=== PATIENT | female | born 1995 | race Caucasian/White ===

== ENCOUNTER → 2016-12-01 | Outpatient (REF) | payer OTHER ==
[~2016-12-01] MED LIST: ACET50TA PO; IBUP80TA PO; MOM30SS PO
[2016-12-01 19:32] LABS: MEAN CORPUSCULAR HEMOGLOBIN 28.3 pg (27.0-33.0); MEAN CORPUSCULAR HGB CONC 32.3 g/dl (32.0-36.5); MEAN CORPUSCULAR VOLUME 87.6 fl (80.0-96.0); RED CELL DISTRIBUTION WIDTH 12.8 % (11.5-14.5); WHITE BLOOD COUNT 4.4 K/mm3 (4.0-10.0)
[2016-12-01 20:07] LABS: HCG, SERUM QUANTITATIVE 11270 MIU/ML
[2016-12-02 14:21] LABS: CONTROL LINE INT CTR LINE PRESENT; HIV SCRN NEGATIVE (NEGATIVE); HIV SCRN1 NEGATIVE (NEGATIVE)
== END ==
LOC: M LAB REF 16:22
PROVIDERS: ATTEND Advanced Practice Midwife
DX: O36.80X0 Pregnancy with inconclusive fetal viability, not applicable or unspecified (principal)

== ENCOUNTER → 2017-03-07 | Outpatient (CLI) | payer OTHER ==
--- NOTE | 2017-03-07 13:48 | REP ---
Obstetric sonography: History: Supervision of for anatomy. Findings: Scanning through the gravid uterus demonstrates a viable single intrauterine gestation in a breech lie. motion is observed and heart rate is recorded at 144 beats per minute. A posterior grade 0 placenta is seen with evidence of complete placenta previa at this juncture. Closed cervical length is 3.4 cm measured transvaginally. No extrauterine abnormalities observed. No anomaly is seen. spine is less than optimally seen. The following additional anatomic structures are identified and felt to be sonographically unremarkable: cranium, choroid plexus, cavum, cerebellum and posterior fossa, nuchal fold face and profile, lungs, four-chamber heart with left and right ventricular outflow tract views, diaphragm, left-sided stomach, abdominal wall cord insertion, three-vessel umbilical cord, kidneys and bladder, upper and lower extremities. Biometry chart: BPD 4.6 cm = 19 weeks 5 days Head circumference 16.3 cm = 19 weeks 0 days Abdominal circumference 14.8 cm = 20 weeks 0 days Femur length 3.2 cm = 20 weeks 1 day Humeral length 3.2 cm = 20 weeks 5 days HC/AC ratio normal 1.1, cephalic index normal 0.8, estimated weight 324 grams, 0 pounds 11 ounces, 80th percentile for 19 weeks 1 day. Impression: Viable single intrauterine gestation at 19 weeks 6 days by today's composite sonographic criteria. MANISHA by today's sonography July 26, 2017. spine less than optimally seen. anatomic survey is otherwise complete. Placenta previa posteriorly. Signed by Angel Stanley MD 03/07/2017 02:06 P
== END ==
LOC: M RAD 12:46
PROVIDERS: ATTEND Obstetrics & Gynecology
DX: Z34.80 Encounter for supervision of other normal pregnancy, unspecified trimester (principal)

== ENCOUNTER → 2017-05-11 | Outpatient (CLI) | payer OTHER ==
[~2017-05-11] MED LIST changes: +CIPR-249 PO; +LORT5TAB PO; +MOTR200T44 PO; +STUACAP PO; +[UNRECOGNIZED DRUG - OTHER] PO
--- NOTE | 2017-05-11 10:25 | REP ---
OBSTETRIC SONOGRAPHY: HISTORY: Supervision of , followup anatomy. Comparison sonography March 07, 2017 showed less than optimal visualization of spine. FINDINGS: Scanning through the gravid uterus demonstrates a viable single intrauterine gestation in a cephalic lie. The placenta is posterior with persistent evidence of complete placenta previa, grade 1. No evidence of abruption. Amniotic fluid is subjectively normal. Closed cervical length is 3.5 cm. No extrauterine abnormalities observed. There has been appropriate interval growth. The following anatomic structures are identified today and felt to be unremarkable: cranium, cavum, cerebellum and posterior fossa, face and profile, lungs, four-chamber heart with left ventricular outflow tract view, diaphragm, left-sided stomach, abdominal wall cord insertion, three-vessel umbilical cord, kidneys and bladder, and spine. Biometry Chart: BPD 6.7 cm = 27 weeks 0 days HC 25.7 cm = 28 weeks 0 days AC 23.9 cm = 28 weeks 1 day FL 5.8 cm = 30 weeks 1 day HL 5.2 cm = 30 weeks 0 days HC/AC ratio normal 1.08. Cephalic index normal 0.71. Estimated weight 1279 grams, 2 pounds 13 ounces, 50th percentile for 28 weeks 3 days. IMPRESSION: Viable single intrauterine gestation at 28 weeks 5 days by today's composite sonographic criteria. Expected gestational age estimate based on prior sonography is 29 weeks 1 day. MANISHA by prior sonography July 26, 2017. A complete placenta previa is seen. anatomic survey is complete. Signed by Angel Stanley MD 05/11/2017 04:39 P
== END ==
LOC: M RAD 09:04
PROVIDERS: ATTEND Obstetrics & Gynecology
DX: Z34.82 Encounter for supervision of other normal pregnancy, second trimester (principal)

== ENCOUNTER → 2017-05-23 | Outpatient (CLI) | payer OTHER ==
[2017-05-23 15:29] LABS: MEAN CORPUSCULAR HGB CONC 33.4 g/dl (32.0-36.5); MEAN CORPUSCULAR VOLUME 86.7 fl (80.0-96.0); RED CELL DISTRIBUTION WIDTH 13.1 % (11.5-14.5); WHITE BLOOD COUNT 5.5 K/mm3 (4.0-10.0)
== END ==
LOC: M LAB 14:09
PROVIDERS: ATTEND Obstetrics & Gynecology
DX: Z34.82 Encounter for supervision of other normal pregnancy, second trimester (principal)

== ENCOUNTER 2017-06-04 14:06 | Inpatient (IN) | payer OTHER ==
[~2017-06-04] VITALS: Ht 154.9 cm; Wt 65.0 kg
[~2017-06-04 14:06] MED LIST changes: -CIPR-249 PO; -LORT5TAB PO; -MOTR200T44 PO; -STUACAP PO; -[UNRECOGNIZED DRUG - OTHER] PO
[2017-06-04 14:25] VITALS: BP 121/74
[2017-06-04 15:07] VITALS: BP 116/68
--- NOTE | 2017-06-04 15:18 | REP ---
Obstetric ultrasound for cervical length: Cervical length is measured with endovaginal ultrasound technique. The cervix measures 4.4 cm in length. No funneling of the internal loss is identified. By the first ultrasound this gestation the gestational age is 32 weeks 4 days an MANISHA of 07/26/2017. There is a single intrauterine gestation in a vertex presentation. heart rate is 165 beats per minute. There is a complete placenta previa. This has been identified on prior ultrasounds. Signed by Michael Jenkins MD 06/04/2017 03:09 P
[2017-06-04] MEDS ORDERED: LACTATED RINGER'S 1000 ML IV ONE (15:30)
[2017-06-04 15:58] LABS: BASO % 0.4 % (0.0-1.0); EOS % 0.6 % (0.0-3.0); LARGE UNSTAINED CELL # 0.3 K/mm3 (0.0-0.4); LARGE UNSTAINED CELL % 4.7 % (0.0-4.0); LYMPH % 17.1 % (24.0-44.0); MEAN CORPUSCULAR HEMOGLOBIN 28.1 pg (27.0-33.0); MEAN CORPUSCULAR HGB CONC 33.6 g/dl (32.0-36.5); MEAN CORPUSCULAR VOLUME 83.5 fl (80.0-96.0); MONO # 0.2 K/mm3 (0.0-0.8); NEUTROPHILS # 4.3 K/mm3 (1.8-7.7); NEUTROPHILS % 73.2 % (36.0-66.0); PLATELET COUNT, AUTOMATED 224 k/mm3 (150-450); RED CELL DISTRIBUTION WIDTH 13.1 % (11.5-14.5); WHITE BLOOD COUNT 5.9 K/mm3 (4.0-10.0)
[2017-06-04] MEDS: LR 1,000 ML IV SCH (17:05)
[2017-06-04 19:36] VITALS: BP 111/64
[2017-06-04 23:36] VITALS: BP 107/64
[2017-06-04] MEDS ORDERED: ACETAMINOPHEN 500 MG TAB As Ordered ONE (23:42)
[2017-06-05] VITALS (8 sets, daily range): BP systolic 98–128; BP diastolic 56–71
[2017-06-05] MEDS ORDERED: BETAMETHASONE SOLUSPAN 6MG/ML INJ 5ML (J0702) IM SCH (07:30)
[2017-06-05] MEDS: LR 1,000 ML IV SCH ×4 (07:30→23:00)
[2017-06-06] VITALS (7 sets, daily range): BP systolic 106–146; BP diastolic 57–80
[2017-06-06] MEDS ORDERED: TERBUTALINE SULFATE 1 MG/ML VIAL (J3105) As Ordered ONE (05:49)
[2017-06-06] MEDS ORDERED: LR 1,000 ML IV SCH (05:58)
[2017-06-06] MEDS ORDERED: ceFAZolin SOD 1 GM in D5W MINI-BAG PLUS 50 ML IV ONE (06:00)
[2017-06-06] MEDS ORDERED: TERBUTALINE SULFATE 1 MG/ML VIAL (J3105) SC ONE (06:00)
[2017-06-06] MEDS ORDERED: BICITRA 30ML SOLN UDC PO ONE (06:00)
[2017-06-06 06:11] LABS: MEAN CORPUSCULAR HEMOGLOBIN 28.4 pg (27.0-33.0); MEAN CORPUSCULAR HGB CONC 33.6 g/dl (32.0-36.5); MEAN CORPUSCULAR VOLUME 84.6 fl (80.0-96.0); WHITE BLOOD COUNT 7.5 K/mm3 (4.0-10.0)
[2017-06-06] MEDS ORDERED: METOCLOPRAMIDE INJ 10MG/2ML VIAL (J2765) IV PRN (07:19)
[2017-06-06] MEDS ORDERED: NALOXONE INJ 0.4 MG/1 ML VIAL (J2310) IV PRN ×2 (07:19)
[2017-06-06] MEDS ORDERED: ONDANSETRON 4MG/2ML VIAL (J2405) IV PRN ×2 (07:19→08:30)
[2017-06-06] MEDS ORDERED: NALBUPHINE HCL 10 MG/ML AMP (J2300) IV PRN ×2 (07:19→08:30)
[2017-06-06] MEDS ORDERED: OXYTOCIN INJ 10 UNITS/ML VIAL (J2590) As Ordered ONE (07:49)
[2017-06-06] MEDS ORDERED: KETOROLAC 60 MG/2 ML VIAL (J1885) As Ordered ONE (07:49)
[2017-06-06] MEDS ORDERED: ONDANSETRON 4MG/2ML VIAL (J2405) As Ordered ONE (07:49)
[2017-06-06] MEDS ORDERED: MORPHINE PRES-FREE INJ 10 MG/10 ML VIAL (J2274) As Ordered ONE (07:49)
[2017-06-06] MEDS ORDERED: PHENYLephrine HCL 500 MCG/5 ML (100MCG/ML) SYRINGE (J2370) As Ordered ONE (07:50)
[2017-06-06 07:51] LABS: CORD GAS ABE V -4.7; CORD GAS O2 SAT V 90.6 %; CORD GAS PCO2 V 31.7 mmHg; CORD GAS PH V 7.396 UNITS; CORD GAS PO2 V 46.4 mmHg; CORD GAS SBC V 20.5 MEQ/L
[2017-06-06 07:53] LABS: CORD GAS ABE A -3.8; CORD GAS HCO3 A 21.3 MEQ/L; CORD GAS O2 SAT A 77.9 %; CORD GAS PCO2 A 38.7 mmHg; CORD GAS PH A 7.358 UNITS; CORD GAS PO2 A 33.8 mmHg; CORD GAS SBC A 20.9 MEQ/L; CORD GAS TCO2 A 22.5 MEQ/L
[2017-06-06] MEDS: LR 1,000 ML IV SCH ×3 (07:54→22:16)
[2017-06-06] MEDS ORDERED: MEASLES,MUMPS,RUBELLA VACCINE INJ (MMR-II) (90707) SC SCH (08:00)
[2017-06-06] MEDS ORDERED: MOM 30ML SUSPENSION UDC PO PRN (08:00)
[2017-06-06] MEDS ORDERED: METHYLERGONOVINE MALEATE 0.2 MG TAB PO PRN (08:00)
[2017-06-06] MEDS ORDERED: RHOGAM 300 MCG (1500 IU) INJ (J2790) IM SCH (08:00)
[2017-06-06] MEDS ORDERED: NORCO, ANEXSIA 5/325MG TABLET (HYDROcodone/ACETAMINOPHEN) PO PRN ×2 (08:00)
[2017-06-06] MEDS ORDERED: fentaNYL 100 MCG/2 ML INJECTION (J3010) IV PRN (08:30)
[2017-06-06] MEDS ORDERED: diphenhydrAMINE INJ 50MG/ML VIAL (J1200) IV PRN (08:30)
[2017-06-06] MEDS ORDERED: MEPERIDINE INJ 25 MG/ML VIAL (J2175) IV PRN (08:30)
[2017-06-06] MEDS: PRENATAL VITAMINS CHEWABLE TABLET PO SCH (09:00)
[2017-06-06] MEDS: DOCUSATE SODIUM 100 MG CAP PO SCH ×2 (09:00→20:43)
[2017-06-06] MEDS ORDERED: METHYLERGONOVINE MALEATE 0.2 MG/ML VIAL (J2210) IM ONE (15:45)
[2017-06-06] MEDS: IBUPROFEN 800 MG TAB PO SCH (18:48)
[2017-06-07] MEDS: IBUPROFEN 800 MG TAB PO SCH ×3 (00:14→16:52)
[2017-06-07] MEDS ORDERED: diphenhydrAMINE INJ 50MG/ML VIAL (J1200) IV PRN (01:30)
[2017-06-07 02:00] VITALS: BP 123/76
[2017-06-07] MEDS: LR 1,000 ML IV SCH (05:35)
[2017-06-07 06:26] VITALS: BP 110/69
[2017-06-07 07:13] LABS: MEAN CORPUSCULAR HEMOGLOBIN 28.3 pg (27.0-33.0); MEAN CORPUSCULAR HGB CONC 33.7 g/dl (32.0-36.5); RED CELL DISTRIBUTION WIDTH 13.3 % (11.5-14.5); WHITE BLOOD COUNT 6.7 K/mm3 (4.0-10.0)
[2017-06-07] MEDS: DOCUSATE SODIUM 100 MG CAP PO SCH (08:37)
[2017-06-07] MEDS: PRENATAL VITAMINS CHEWABLE TABLET PO SCH (08:38)
--- NOTE | 2017-06-07 09:43 | RO ---
DATE OF PROCEDURE: 06/06/2017 Jackie is a 21-year-old female, para 2-0-0-2, who was admitted at 32 weeks' gestation with a complete previa with acute bleeding. She underwent one dose of steroid, was being monitored in labor and delivery. She again began to bleed nonstop, but at this point, a decision was made to proceed with a primary section. PREOPERATIVE DIAGNOSES: 1. Intrauterine at 32 weeks' gestation, status post one dose of steroid. 2. Complete placenta previa. 3. Acute bleeding. POSTOPERATIVE DIAGNOSES: 1. Intrauterine at 32 weeks' gestation, status post one dose of steroid. 2. Complete placenta previa. 3. Acute bleeding. PROCEDURE: Primary low transverse section. ANESTHESIA: Spinal. SURGEON: Juan Costello DO ABE TEACHER: Chanell Palmer CNM COMPLICATION: None. ESTIMATED BLOOD LOSS: 500 mL. FINDING: Live female infant in occiput transverse position with a complete placenta previa. Normal tubes and ovaries. DESCRIPTION OF PROCEDURE: After obtaining informed consent, the patient was taken to the operating room, where spinal anesthetic was found to be adequate. She was then draped and prepped in the usual sterile fashion in the supine position. At this point, a Pfannenstiel incision was made. This was carried down to the fascia. The fascia was incised in midline fashion and carried through laterally. Superior aspect of the fascia then grasped with two Aspen clamps, then tented off, and dissected off the rectus muscles sharply. The inferior aspect was dissected off in a similar fashion. Rectus muscles in midline fashion. Perineum identified. Peritoneal cavity entered bluntly. Superior and inferior dissection of the peritoneum was then done with good visualization of the bladder. At this point, a Mobius skin retractor was placed. A low-transverse uterine incision was made. The was delivered in an atraumatic fashion. Nose and mouth bulb suctioned. Cord doubly clamped and cut, and was handed over to the awaiting neuropsychology division chief. Cord blood and cord gas were sent. Placenta removed manually. Uterus cleared of all clot and debris. 0.2 mg of Methergine was given intramuscular (IM). The uterine incision was closed in two separate segments of 0 Vicryl sutures. The pelvis copiously irrigated with normal saline and suctioned out. Attention turned to the peritoneum, which was closed using 2-0 Vicryl in a running fashion. The fascia closed in two separate segments of 0 Vicryl sutures. All superficial bleeders were coagulated, and the skin was reapproximated in subcuticular fashion using 3-0 Vicryl on a Francisco. Steri-Strips placed. The patient tolerated the procedure well. She was then transferred to the recovery room in stable condition.
[2017-06-07 10:41] VITALS: BP 103/65
[2017-06-07 14:28] VITALS: BP 118/70
[2017-06-07 18:32] VITALS: BP 116/64
[2017-06-07] MEDS ORDERED: STUACAP PO (18:54)
[2017-06-07] MEDS ORDERED: LORT5TAB PO ×2 (18:54→19:01)
[2017-06-07] MEDS ORDERED: MOTR200T44 PO (18:54)
--- NOTE | 2017-06-12 19:53 | DS.PDOC ---
Discharge Summary General Date of Admission Jun 06, 2017 at 05:00 Date of Discharge 06/07/2017. Attending Physician: Juan Costello DO Discharge Summary PROCEDURES PERFORMED DURING STAY: Primary section. ADMITTING DIAGNOSES: 1. IUP at 32.1 weeks gestation. 2. Complete previa. 3. Acute bleeding. DISCHARGE DIAGNOSES: 1. Day 1 postoperative. COMPLICATIONS/CHIEF COMPLAINT: Complete Previa. HISTORY OF PRESENT ILLNESS: Patient is a 21-year-old female who is now a . Patient's MANISHA is 07/31/2017 based off of her first trimester ultrasound. She presented to labor and delivery on 06/04/2017 with complaints of bleeding. Patient's has been complicated by a complete previa. The patient received one dose of betamethasone. The decision was made to do a primary low transverse section due to patient's complete previa with acute active bleeding. Patient has recovered well from her section. She does desire to be discharged so that she can be with her at [facility]. DISCHARGE MEDICATIONS: Please see below. ALLERGIES: Please see below. PHYSICAL EXAMINATION ON DISCHARGE: VITAL SIGNS: Please see below. GENERAL: Alert and oriented 3 RESPIRATORY EXAMINATION: Regular rate. No use of accessory muscles. ABDOMINAL EXAMINATION: Dressing removed. Low transverse incision is approximated area oh erythema or draining from incision. EXTREMITIES: No edema present. PERINEUM: Lochia is moderate bright red. Voided over 800 mL. LABORATORY DATA: Please see below. ACTIVITY: As tolerated, pelvic rest. DIET: Regular. DISCHARGE INSTRUCTIONS: 1. Patient may be discharged due to being transferred to [facility]. 2. Education done with patient on mastitis, endometritis, hemorrhage, DVT, pulmonary embolism, signs or symptoms of infection at the incision site, caring for her incision site, pain management, pelvic rest, depression and psychosis. Reviewed signs and symptoms the patient is to call provider with. 3. Follow up in 2 weeks for an incision check and 6 weeks . DISCHARGE CONDITION: Stable. Vital Signs/I&Os Vital Signs Date Time Temp Pulse Resp B/P (MAP) Pulse Ox O2 Delivery O2 Flow Rate FiO2 06/07/17 18:32 98.5 86 20 116/64 (81) 06/07/17 10:41 99 06/07/17 02:00 Room Air Microbiology Microbiology 06/04/17 Urine Culture - Final, Complete Discharge Medications Scheduled (Hunter One 27-0.8-200 mg) 1 Cap Cap, 1 CAP PO DAILY, (Reported) Scheduled PRN (Lortab 5-325 mg) 1 Tab Tab, 1 TAB PO Q4HP PRN for PAIN SCALE 6-10 Ibuprofen (Motrin Ib) 200 Mg Tab, 800 MG PO Q8HP PRN for PAIN, (Reported) Allergies Coded Allergies: Sulfa Drugs (Verified Allergy, Unknown, 01/22/13) Sulfa Drugs Cross Reactors (Verified Allergy, Unknown, 01/22/13) Sulfamethoxazole (Verified Allergy, Unknown, 01/22/13) Trimethoprim (Verified Allergy, Unknown, 01/22/13) GUSTAVO TREJO CNM Jun 12, 2017 19:52
== END 2017-06-07 19:00 | disposition home or self-care (01) | DRG 540 ==
LOC: M LDO 14:06 → M OBS 06-05 14:45 → M LDI 06-06 04:56 → M LDO 06-06 04:59 → M LDI 06-06 05:00 → M OBS 06-06 09:20
PROVIDERS: ADMIT Obstetrics & Gynecology; ATTEND Obstetrics & Gynecology
PROC: 10D00Z1 Extraction of Products of Conception, Low, Open Approach (ICD-10-PCS; principal; 2017-06-06 07:25)
DX: O44.13 Complete placenta previa with hemorrhage, third trimester (principal); Z37.0 Single live birth; Z3A.32 32 weeks gestation of pregnancy

== ENCOUNTER 2017-07-21 07:11 | Emergency (ER) | payer OTHER ==
[~2017-07-21] VITALS: Ht 154.9 cm; Wt 61.4 kg
[~2017-07-21 07:11] MED LIST changes: +LORT5TAB PO; +MOTR200T44 PO; +STUACAP PO
[2017-07-21] MEDS ORDERED: [UNRECOGNIZED DRUG - OTHER] PO (07:23)
[2017-07-21] MEDS ORDERED: CIPR-249 PO (08:15)
[2017-07-21 08:23] VITALS: BP 111/76
== END 2017-07-21 08:26 | disposition home or self-care (01) ==
LOC: M ED 07:11
DX: N39.0 Urinary tract infection, site not specified (principal)

== ENCOUNTER 2017-12-08 11:59 | Emergency (ER) | payer OTHER ==
[2017-12-08 12:59] LABS: KETONE, URINE AUTO RFX NEGATIVE (NEGATIVE); MUCUS, URINE RFX SMALL (NEGATIVE); NITRITE, URINE AUTO RFX NEGATIVE (NEGATIVE); RBC, URINE AUTO RFX TNTC /HPF (0-3); SPECIFIC GRAVITY UR AUTO RFX 1.009 (1.002-1.035); SQUAM EPITHELIAL CELL UR AURFX 1 /HPF (0-6)
[2017-12-08 13:04] LABS: LEUKOCYTE ESTERASE UR AUTO RFX 3+ (NEGATIVE); WBC, URINE AUTO RFX 45 /HPF (0-3)
[2017-12-08 15:09] LABS: BASO % 0.3 % (0.0-1.0); EOS % 0.4 % (0.0-3.0); HEMATOCRIT 39.3 % (36.0-47.0); HEMOGLOBIN 12.8 g/dl (12.0-16.0); IMMATURE GRANULOCYTE % 0.3 % (0-3.0); LYMPH # 1.3 10^3/uL (1.5-6.5); LYMPH % 17.6 % (24.0-44.0); MEAN CORPUSCULAR HEMOGLOBIN 27.9 pg (27.0-33.0); MEAN CORPUSCULAR HGB CONC 32.6 g/dl (32.0-36.5); MEAN CORPUSCULAR VOLUME 85.6 fl (80.0-96.0); MONO # 0.4 10^3/uL (0.0-0.8); MONO % 5.3 % (0.0-5.0); NEUTROPHILS # 5.7 10^3/uL (1.8-7.7); NEUTROPHILS % 76.1 % (36.0-66.0); PLATELET COUNT, AUTOMATED 229 10^3/uL (150-450); RED BLOOD COUNT 4.59 10^6/uL (4.00-5.40); RED CELL DISTRIBUTION WIDTH 13.4 % (11.5-14.5); WHITE BLOOD COUNT 7.5 10^3/uL (4.0-10.0)
[2017-12-08] MEDS: KETOROLAC 30 MG/ML VIAL (J1885) IV (15:10)
[2017-12-08] MEDS: NS 1,000 ML IV (15:10)
[2017-12-08] MEDS: ONDANSETRON 4MG/2ML VIAL (J2405) IV (15:10)
[2017-12-08 15:46] LABS: ALBUMIN 4.4 GM/DL (3.2-5.2); ALBUMIN/GLOBULIN RATIO 1.26 (1.00-1.93); ALKALINE PHOSPHATASE 88 U/L (45-117); ALT/SGPT 9 U/L (12-78); ANION GAP 8 MEQ/L (8-16); AST/SGOT 8 U/L (7-37); BILIRUBIN,DIRECT 0.1 MG/DL (0.0-0.2); BILIRUBIN,TOTAL 0.4 MG/DL (0.2-1.0); BLOOD UREA NITROGEN 9 MG/DL (7-18); CALCIUM LEVEL 9.4 MG/DL (8.5-10.1); CARBON DIOXIDE LEVEL 26 MEQ/L (21-32); CHLORIDE LEVEL 105 MEQ/L (98-107); CREATININE FOR GFR 0.69 MG/DL (0.55-1.30); GLOMERULAR FILTRATION RATE > 60.0 (>60); GLUCOSE, FASTING 83 MG/DL (70-100); LIPASE 92 U/L (73-393); POTASSIUM SERUM 4.4 MEQ/L (3.5-5.1); SODIUM LEVEL 139 MEQ/L (136-145); TOTAL PROTEIN 7.9 GM/DL (6.4-8.2)
== END 2017-12-08 16:05 | disposition home or self-care (01) ==
LOC: M ED 11:59
DX: N12 Tubulo-interstitial nephritis, not specified as acute or chronic (principal); Z88.0 Allergy status to penicillin; Z88.2 Allergy status to sulfonamides; Z88.8 Allergy status to other drugs, medicaments and biological substances
CPT/HCPCS: J2405

== ENCOUNTER 2018-04-07 18:36 | Emergency (ER) | payer OTHER ==
[2018-04-07] MEDS: IBUPROFEN 600 MG TAB PO (20:03)
[2018-04-07] MEDS: dexameTHASONE 4 MG/ML 1ML VIAL (J1100) PO (20:03)
== END 2018-04-07 20:10 | disposition home or self-care (01) ==
LOC: M ED 18:36
DX: J02.0 Streptococcal pharyngitis (principal); Z88.0 Allergy status to penicillin; Z88.2 Allergy status to sulfonamides; Z88.1 Allergy status to other antibiotic agents
CPT/HCPCS: J1100

== ENCOUNTER → 2018-05-17 | Outpatient (REF) | payer OTHER ==
[2018-05-17 13:51] LABS: AMORPHOUS SEDIMENT SMALL (NEGATIVE); APPEARANCE, URINE CLOUDY (CLEAR); BACTERIA, URINE AUTO 2+ (NEGATIVE); BILIRUBIN, URINE AUTO NEGATIVE (NEGATIVE); BLOOD, URINE BLOOD 2+ (NEGATIVE); COLOR, URINE AMBER (YELLOW); GLUCOSE, URINE (UA) AUTO NEGATIVE (NEGATIVE); KETONE, URINE AUTO TRACE mg/dL (NEGATIVE); LEUKOCYTE ESTERASE, URINE AUTO 3+ (NEGATIVE); MUCUS, URINE SMALL (NEGATIVE); NITRITE, URINE AUTO POSITIVE (NEGATIVE); PROTEIN, URINE AUTO 2+ mg/dL (NEGATIVE); RBC, URINE AUTO 72 /HPF (0-3); SPECIFIC GRAVITY URINE AUTO 1.021 (1.002-1.035); SQUAMOUS EPITHELIAL CELL UR AU 1 /HPF (0-6); WBC, URINE AUTO TNTC /HPF (0-3)
== END ==
LOC: M LAB REF 13:09
DX: N39.0 Urinary tract infection, site not specified (principal)
CPT/HCPCS: 81001

== ENCOUNTER 2018-06-25 18:06 | Emergency (ER) | payer MEDICAID, SELFPAY, OTHER ==
[2018-06-25 20:20] LABS: KETONE, URINE AUTO RFX TRACE mg/dL (NEGATIVE); MUCUS, URINE RFX LARGE (NEGATIVE); NITRITE, URINE AUTO RFX NEGATIVE (NEGATIVE); RBC, URINE AUTO RFX 38 /HPF (0-3); SPECIFIC GRAVITY UR AUTO RFX 1.025 (1.002-1.035); SQUAM EPITHELIAL CELL UR AURFX 11 /HPF (0-6)
[2018-06-25 20:21] LABS: LEUKOCYTE ESTERASE UR AUTO RFX 1+ (NEGATIVE); WBC, URINE AUTO RFX 12 /HPF (0-3)
[2018-06-25 21:02] LABS: BASO % 0.5 % (0.0-1.0); EOS # 0.1 10^3/uL (0.0-0.50); EOS % 1.2 % (0.0-3.0); HEMATOCRIT 39.1 % (36.0-47.0); HEMOGLOBIN 12.9 g/dl (12.0-15.5); IMMATURE GRANULOCYTE % 0.2 % (0-3.0); LYMPH # 1.1 10^3/uL (1.5-6.5); LYMPH % 26.8 % (24.0-44.0); MEAN CORPUSCULAR VOLUME 84.8 fl (80.0-96.0); MONO # 0.2 10^3/uL (0.0-0.8); MONO % 5.7 % (0.0-5.0); NEUTROPHILS # 2.8 10^3/uL (1.8-7.7); NEUTROPHILS % 65.6 % (36.0-66.0); PLATELET COUNT, AUTOMATED 254 10^3/uL (150-450); RED BLOOD COUNT 4.61 10^6/uL (4.00-5.40); RED CELL DISTRIBUTION WIDTH 13.3 % (11.5-14.5); WHITE BLOOD COUNT 4.2 10^3/uL (4.0-10.0)
[2018-06-25 21:25] LABS: HCG, SERUM QUANTITATIVE 56 MIU/ML
== END 2018-06-25 22:21 | disposition home or self-care (01) ==
LOC: M ED 18:06
DX: O20.9 Hemorrhage in early pregnancy, unspecified (principal); O23.10 Infections of bladder in pregnancy, unspecified trimester; Z88.0 Allergy status to penicillin; Z88.5 Allergy status to narcotic agent; Z88.2 Allergy status to sulfonamides; Z3A.01 Less than 8 weeks gestation of pregnancy
CPT/HCPCS: 76801

== ENCOUNTER → 2018-07-05 | Outpatient (REF) | payer MEDICAID, SELFPAY ==
[2018-07-05 19:32] LABS: HCG, SERUM QUANTITATIVE < 1.0 MIU/ML
== END ==
LOC: M LAB REF 18:18
DX: O36.80X0 Pregnancy with inconclusive fetal viability, not applicable or unspecified (principal)
CPT/HCPCS: 84702

== ENCOUNTER 2018-12-05 02:01 | Emergency (ER) | payer MEDICAID ==
[~2018-12-05] VITALS: Ht 157.5 cm; Wt 63.2 kg
[~2018-12-05 02:01] MED LIST changes: +CIPR-249 PO; +IBUP-1022 PO; +MACR100C43 PO; +MAGICMW MT; +PYRI1TAB5 PO; +ZITHTAB PO; +[UNRECOGNIZED DRUG - OTHER] PO
[2018-12-05 03:17] LABS: INFLUENZA A AMPLIFICATION POSITIVE (NEGATIVE); INFLUENZA B AMPLIFICATION NEGATIVE (NEGATIVE)
[2018-12-05] MEDS ORDERED: OSEL75CA PO (06:11)
[2018-12-05] MEDS ORDERED: IBUPROFEN 600 MG TAB PO ONE (06:15)
[2018-12-05 06:30] VITALS: BP 107/67
--- NOTE | 2018-12-05 07:49 | REP ---
PA and lateral chest: There are no comparisons. The lung ferrara are clear. The cardiac size is normal. The teja, mediastinum, and skeletal structures are unremarkable. Impression: Negative PA and lateral chest. Electronically Signed by Michael Jenkins MD 12/05/2018 07:40 A
== END 2018-12-05 06:30 | disposition home or self-care (01) ==
LOC: M ED 02:01
DX: J09.X2 Influenza due to identified novel influenza A virus with other respiratory manifestations (principal); Z88.1 Allergy status to other antibiotic agents; Z88.5 Allergy status to narcotic agent; Z88.2 Allergy status to sulfonamides; Z79.899 Other long term (current) drug therapy

== ENCOUNTER 2018-12-23 17:30 | Emergency (ER) | payer MEDICAID, OTHER ==
[~2018-12-23] VITALS: Ht 157.5 cm; Wt 61.0 kg
[2018-12-23 17:30] VITALS: BP 125/73
[~2018-12-23 17:30] MED LIST changes: +OSEL75CA PO
[2018-12-23] MEDS ORDERED: PRENCHW PO (17:33)
[2018-12-23] MEDS ORDERED: NITROFURANTOIN (MACROBID) 100 MG CAP PO ONE (18:15)
== END 2018-12-23 18:31 | disposition home or self-care (01) ==
LOC: M ED 17:30
DX: Z3A.01 Less than 8 weeks gestation of pregnancy (principal); O23.41 Unspecified infection of urinary tract in pregnancy, first trimester; Z88.0 Allergy status to penicillin; Z88.5 Allergy status to narcotic agent; Z88.2 Allergy status to sulfonamides; Z88.1 Allergy status to other antibiotic agents

== ENCOUNTER → 2019-01-01 | Outpatient (REF) | payer OTHER ==
[~2019-01-01] MED LIST changes: +PRENCHW PO
[2019-01-01 18:33] LABS: HEMOGLOBIN 12.4 g/dl (12.0-15.5); MEAN CORPUSCULAR HEMOGLOBIN 28.2 pg (27.0-33.0); MEAN CORPUSCULAR HGB CONC 32.6 g/dl (32.0-36.5); MEAN CORPUSCULAR VOLUME 86.4 fl (80.0-96.0); PLATELET COUNT, AUTOMATED 200 10^3/uL (150-450); WHITE BLOOD COUNT 4.3 10^3/uL (4.0-10.0)
[2019-01-01 19:01] LABS: HCG, SERUM QUANTITATIVE 42224 MIU/ML
[2019-01-02 09:51] LABS: RUBELLA IgG QUALITATIVE IMMUNE (IMMUNE)
[2019-01-02 10:20] LABS: HEPATITIS C VIRUS ABY INDEX < 0.0 INDEX (<0.8)
[2019-01-02 10:21] LABS: HIV 1&2 SCREEN CENTAUR NEGATIVE (NEGATIVE)
== END ==
LOC: M LAB REF 17:06
PROVIDERS: ATTEND Obstetrics & Gynecology
DX: O36.80X0 Pregnancy with inconclusive fetal viability, not applicable or unspecified (principal)

== ENCOUNTER 2019-03-20 20:00 | Emergency (ER) | payer OTHER ==
[~2019-03-20] VITALS: Ht 157.5 cm; Wt 64.5 kg
[~2019-03-20 20:00] MED LIST changes: -ACET50TA PO; +MAPA500T17 PO
[2019-03-20 20:40] LABS: BASO % 0.3 % (0.0-1.0); EOS % 0.5 % (0.0-3.0); HEMATOCRIT 35.2 % (36.0-47.0); LYMPH # 1.2 10^3/uL (1.5-6.5); LYMPH % 20.4 % (24.0-44.0); MEAN CORPUSCULAR HEMOGLOBIN 30.4 pg (27.0-33.0); MEAN CORPUSCULAR HGB CONC 34.1 g/dl (32.0-36.5); MEAN CORPUSCULAR VOLUME 89.1 fl (80.0-96.0); MONO # 0.3 10^3/uL (0.0-0.8); MONO % 5.1 % (0.0-5.0); NEUTROPHILS # 4.3 10^3/uL (1.8-7.7); PLATELET COUNT, AUTOMATED 231 10^3/uL (150-450); RED BLOOD COUNT 3.95 10^6/uL (4.00-5.40); WHITE BLOOD COUNT 5.8 10^3/uL (4.0-10.0)
[2019-03-20 21:05] LABS: BLOOD UREA NITROGEN 10 MG/DL (7-18); CALCIUM LEVEL 8.4 MG/DL (8.5-10.1); CARBON DIOXIDE LEVEL 25 MEQ/L (21-32); CHLORIDE LEVEL 108 MEQ/L (98-107); CREATININE FOR GFR 0.49 MG/DL (0.55-1.30); GLOMERULAR FILTRATION RATE > 60.0 (>60); GLUCOSE, FASTING 80 MG/DL (70-100); POTASSIUM SERUM 4.8 MEQ/L (3.5-5.1); SODIUM LEVEL 141 MEQ/L (136-145)
[2019-03-20] MEDS ORDERED: CEPHALEXIN 500 MG CAP PO ONE (21:45)
[2019-03-20] MEDS ORDERED: KEFL500C17 PO (21:45)
[2019-03-20 21:50] VITALS: BP 105/59
== END 2019-03-20 21:51 | disposition home or self-care (01) ==
LOC: M ED 20:00
DX: N30.00 Acute cystitis without hematuria (principal); Z79.899 Other long term (current) drug therapy; Z88.2 Allergy status to sulfonamides; Z88.0 Allergy status to penicillin; Z88.5 Allergy status to narcotic agent; Z88.8 Allergy status to other drugs, medicaments and biological substances

== ENCOUNTER → 2019-06-13 | Outpatient (CLI) | payer OTHER ==
[~2019-06-13] MED LIST changes: +KEFL500C17 PO
[2019-06-13 15:25] LABS: HEMATOCRIT 30.9 % (36.0-47.0); HEMOGLOBIN 10.1 g/dl (12.0-15.5); MEAN CORPUSCULAR HEMOGLOBIN 28.7 pg (27.0-33.0); MEAN CORPUSCULAR HGB CONC 32.7 g/dl (32.0-36.5); MEAN CORPUSCULAR VOLUME 87.8 fl (80.0-96.0); PLATELET COUNT, AUTOMATED 212 10^3/uL (150-450); RED BLOOD COUNT 3.52 10^6/uL (4.00-5.40); WHITE BLOOD COUNT 5.5 10^3/uL (4.0-10.0)
== END ==
LOC: M LAB 13:16
PROVIDERS: ATTEND Obstetrics & Gynecology
DX: Z34.82 Encounter for supervision of other normal pregnancy, second trimester (principal); Z3A.00 Weeks of gestation of pregnancy not specified

== ENCOUNTER → 2019-07-25 | Outpatient (REF) | payer OTHER | LOC: M LAB REF 12:10 | PROVIDERS: ATTEND Nurse Practitioner Women's Health | DX: Z34.83 Encounter for supervision of other normal pregnancy, third trimester (principal) ==

== ENCOUNTER 2019-08-08 04:49 | Inpatient (IN) | payer OTHER ==
[~2019-08-08] VITALS: Ht 157.5 cm; Wt 70.9 kg
[2019-08-08] VITALS (10 sets, daily range): BP systolic 103–122; BP diastolic 57–85
[2019-08-08] MEDS ORDERED: LR 1,000 ML IV SCH ×2 (05:16→10:15)
[2019-08-08] MEDS ORDERED: LACTATED RINGER'S 1000 ML IV STA (05:16)
[2019-08-08] MEDS ORDERED: BICITRA 30ML SOLN UDC PO ONE (05:30)
[2019-08-08] MEDS ORDERED: ceFAZolin SOD 2 GM in IV 1 EA IV ONE (05:30)
[2019-08-08 05:59] LABS: HEMATOCRIT 33.9 % (36.0-47.0); HEMOGLOBIN 10.9 g/dl (12.0-15.5); MEAN CORPUSCULAR HEMOGLOBIN 25.8 pg (27.0-33.0); MEAN CORPUSCULAR HGB CONC 32.2 g/dl (32.0-36.5); MEAN CORPUSCULAR VOLUME 80.3 fl (80.0-96.0); PLATELET COUNT, AUTOMATED 247 10^3/uL (150-450); RED BLOOD COUNT 4.22 10^6/uL (4.00-5.40); WHITE BLOOD COUNT 5.8 10^3/uL (4.0-10.0)
[2019-08-08] MEDS ORDERED: LIDOCAINE 2% INJ 100 MG/5 ML SDV (FOR ANES.) As Ordered ONE (07:15)
[2019-08-08] MEDS ORDERED: PROPOFOL 200 MG/20 ML VIAL As Ordered ONE (07:19)
[2019-08-08] MEDS ORDERED: OXYTOCIN DRIP 30 UNITS in IV 1 EA IV SCH (07:28)
[2019-08-08] MEDS ORDERED: MORPHINE 10 MG/ML 1ML VIAL (J2270) As Ordered ONE (07:29)
[2019-08-08] MEDS ORDERED: MOM 30ML SUSPENSION UDC PO PRN (07:30)
[2019-08-08] MEDS ORDERED: ONDANSETRON 4MG/2ML VIAL (J2405) IV PRN ×3 (07:30→10:15)
[2019-08-08] MEDS ORDERED: MEASLES,MUMPS,RUBELLA VACCINE INJ (MMR-II) (90707) SC SCH (07:30)
[2019-08-08] MEDS ORDERED: RHOGAM 300 MCG (1500 IU) INJ (J2790) IM SCH (07:30)
[2019-08-08] MEDS ORDERED: CLINDAMYCIN 600 MG in IV 1 EA IV ONE ×4 (07:30)
[2019-08-08] MEDS ORDERED: MORPHINE PRES-FREE INJ 10 MG/10 ML VIAL (J2274) As Ordered ONE (07:32)
[2019-08-08] MEDS ORDERED: CLINDAMYCIN 600 MG/50 ML PREMIX BAG As Ordered ONE (07:34)
[2019-08-08] MEDS ORDERED: diphenhydrAMINE INJ 50MG/ML VIAL (J1200) IV PRN (08:09)
[2019-08-08] MEDS ORDERED: METOCLOPRAMIDE INJ 10MG/2ML VIAL (J2765) IV PRN ×2 (08:09→10:15)
[2019-08-08] MEDS ORDERED: NALBUPHINE HCL 10 MG/ML AMP (J2300) IV PRN ×2 (08:09→10:15)
[2019-08-08] MEDS ORDERED: NALOXONE INJ 0.4 MG/1 ML VIAL (J2310) IV PRN ×2 (08:09)
[2019-08-08] MEDS ORDERED: ONDANSETRON 4MG/2ML VIAL (J2405) As Ordered ONE (08:27)
[2019-08-08 08:46] LABS: CORD GAS ABE V -3.6; CORD GAS HCO3 V 21.9 MEQ/L; CORD GAS O2 SAT V 79.5 %; CORD GAS PCO2 V 41.4 mmHg; CORD GAS PH V 7.342 UNITS; CORD GAS PO2 V 38.3 mmHg; CORD GAS SBC V 21.1 MEQ/L; CORD GAS TCO2 V 23.2 MEQ/L
[2019-08-08 08:47] LABS: CORD GAS ABE A -3.4; CORD GAS HCO3 A 24.8 MEQ/L; CORD GAS O2 SAT A 64.6 %; CORD GAS PCO2 A 57.1 mmHg; CORD GAS PH A 7.255 UNITS; CORD GAS PO2 A 31.2 mmHg; CORD GAS SBC A 20.9 MEQ/L; CORD GAS TCO2 A 26.5 MEQ/L
[2019-08-08] MEDS ORDERED: KETOROLAC 60 MG/2 ML VIAL (J1885) As Ordered ONE (08:59)
[2019-08-08] MEDS: DOCUSATE SODIUM 100 MG CAP PO SCH ×2 (09:00→20:57)
[2019-08-08] MEDS ORDERED: PHENYLephrine HCL 500 MCG/5 ML (100MCG/ML) SYRINGE (J2370) As Ordered ONE (09:00)
[2019-08-08] MEDS ORDERED: ePHEDrine SULFATE 25 MG/5 ML(5MG/ML) SYRINGE As Ordered ONE (09:00)
[2019-08-08] MEDS: PRENATAL VITAMINS CHEWABLE TABLET PO SCH (09:00)
[2019-08-08] MEDS ORDERED: OXYTOCIN 30 UNITS IN 0.9% NaCl 500ML IV BAG (J2590) As Ordered ONE (09:44)
[2019-08-08] MEDS ORDERED: KETOROLAC 30 MG/ML VIAL (J1885) IV PRN (10:15)
[2019-08-08] MEDS ORDERED: fentaNYL 100 MCG/2 ML INJECTION (J3010) IV PRN (10:15)
[2019-08-08] MEDS: IBUPROFEN 800 MG TAB PO SCH (17:01)
[2019-08-08] MEDS: PERCOCET 5MG/325MG TAB PO PRN (17:02)
--- NOTE | 2019-08-08 18:24 | RO ---
DATE OF PROCEDURE: 08/08/2019 Jackie is a 23-year-old female with a history of two prior sections who is being admitted for elective repeat section. The patient also desires permanent tubal sterilization. After counseling in the office, a decision was made to proceed with a repeat section and bilateral salpingectomy at the patient's request. PREOPERATIVE DIAGNOSIS 1. Term for elective repeat section. 2. Desires permanent tubal sterilization in the form of removal both tubes. POSTOPERATIVE DIAGNOSIS 1. Term for elective repeat section. 2. Desires permanent tubal sterilization in the form of removal both tubes. PROCEDURE 1. Repeat section. 2. Bilateral salpingectomies 3. Revision of old scar. SURGEON: Juan Costello MD OVEREDGE SEWER: ANESTHESIA: Spinal. ESTIMATED BLOOD LOSS: 500 mL SPECIMENS SENT TO LAB: Bilateral tubes. DESCRIPTION OF PROCEDURE After obtaining informed consent, the patient was taken to the operating room where spinal anesthetic was found be adequate. She was then draped and prepped in the usual sterile fashion in the supine position. At this point, an elliptical incision was made over her old scar. The old scar was removed. This was carried down to the fascia. Fascia was incised in midline fashion and carried through laterally. Superior aspect of the fascia was then grasped with two Aspen clamps, tented off and dissected off the rectus muscles sharply. The inferior aspect was dissected off in similar fashion. Rectus muscles in midline fashion. Perineum identified. Perineal cavity entered bluntly. Superior and inferior dissection of the peritoneum was then done with good visualization of the bladder. At this point, a Mobius skin retractor was placed, a low-transverse uterine incision was made. was delivered in atraumatic fashion. Nose and mouth bulb suctioned. Cord doubly clamped and cut and infant was handed over to the waiting warmer. Cord blood and cord gas were sent. Placenta removed manually. Uterus cleared of all clot and debris and the uterine incision was then repaired in two separate layers of #0 Vicryl sutures. At this point, we then turned our attention to the fallopian tube. The fimbriated end were identified using to two Allis's. The mesosalpinx was clamped and using the Bovie the mesosalpinx was transected all way down to the cornual end of the tube which was also clamped and cut, and suture ligated using #2-0 Vicryl sutures. The opposite side was done in similar fashion. Both tubes were sent to pathology for final diagnosis. Good hemostasis noted. Pelvis copiously irrigated with normal saline and suctioned out. Attention turned to the peritoneum which was closed using #2-0 Vicryl in a running fashion. Fascia closed in two separate segment of #0 Vicryl sutures and the skin was reapproximated in a subcuticular fashion using #3-0 Vicryl on a Francisco. Steri-Strips placed. The patient tolerated the procedure well. She was then transferred to recovery room in stable condition.
[2019-08-09 02:00] VITALS: BP 97/57
[2019-08-09] MEDS: IBUPROFEN 800 MG TAB PO SCH ×3 (02:15→17:12)
[2019-08-09] MEDS: PERCOCET 5MG/325MG TAB PO PRN ×3 (04:27→20:43)
[2019-08-09 06:01] VITALS: BP 93/53
[2019-08-09 06:44] LABS: HEMATOCRIT 25.2 % (36.0-47.0); MEAN CORPUSCULAR HGB CONC 31.7 g/dl (32.0-36.5); MEAN CORPUSCULAR VOLUME 81.8 fl (80.0-96.0); PLATELET COUNT, AUTOMATED 177 10^3/uL (150-450); RED BLOOD COUNT 3.08 10^6/uL (4.00-5.40); WHITE BLOOD COUNT 6.2 10^3/uL (4.0-10.0)
[2019-08-09] MEDS ORDERED: PERCOCET PO (06:52)
[2019-08-09] MEDS ORDERED: IBUP80TA PO (06:56)
[2019-08-09] MEDS: DOCUSATE SODIUM 100 MG CAP PO SCH ×2 (08:23→20:42)
[2019-08-09] MEDS: PRENATAL VITAMINS CHEWABLE TABLET PO SCH (08:23)
[2019-08-09 10:10] VITALS: BP 98/70
[2019-08-09 14:00] VITALS: BP 102/62
[2019-08-09 18:02] VITALS: BP 114/65
[2019-08-09 22:00] VITALS: BP 109/70
[2019-08-10] MEDS: IBUPROFEN 800 MG TAB PO SCH ×2 (01:29→10:57)
[2019-08-10 02:00] VITALS: BP 118/75
[2019-08-10] MEDS: PERCOCET 5MG/325MG TAB PO PRN (02:23)
[2019-08-10 06:00] VITALS: BP 94/51
[2019-08-10] MEDS ORDERED: OXYC1TAB23 PO (07:51)
[2019-08-10] MEDS ORDERED: INFLUENZA QUADRIVALENT PF VACCINE 0.5ML SYRINGE (90686) IM ONE (09:00)
[2019-08-10] MEDS: PRENATAL VITAMINS CHEWABLE TABLET PO SCH (10:56)
[2019-08-10] MEDS: DOCUSATE SODIUM 100 MG CAP PO SCH (10:56)
--- NOTE | 2019-08-10 17:47 | DSES ---
DATE OF ADMISSION: 08/08/2019 DATE OF DISCHARGE: 08/10/2019 A 23-year-old G3, P2 female presents at 39 weeks gestation for repeat section. She has had two prior sections. She desires sterilization. HOSPITAL COURSE: On 08/08/2019 the patient underwent repeat low transverse section and bilateral tubal ligation. The procedure was uncomplicated. She had adequate return of bladder and bowel function. Her postoperative hemoglobin was 8.0 grams per deciliter. She was deemed stable for discharge on postoperative day #2. ADMISSION DIAGNOSIS: , term, prior section. DISCHARGE DIAGNOSIS: , term, prior section. PROCEDURE: Repeat section and bilateral tubal ligation. DISPOSITION: Patient will followup with Dr. Costello in 2 weeks. Instructions were reviewed.
== END 2019-08-10 11:40 | disposition home or self-care (01) | DRG 540 ==
LOC: M LDI 04:49 → M OBS 12:03
PROVIDERS: ADMIT Obstetrics & Gynecology; ATTEND Obstetrics & Gynecology
PROC: 0UB70ZZ Excision of Bilateral Fallopian Tubes, Open Approach (ICD-10-PCS; 2019-08-08)
PROC: 10D00Z1 Extraction of Products of Conception, Low, Open Approach (ICD-10-PCS; principal; 2019-08-08 07:30)
DX: O34.211 Maternal care for low transverse scar from previous cesarean delivery (principal); Z3A.39 39 weeks gestation of pregnancy; Z37.0 Single live birth; Z30.2 Encounter for sterilization

== ENCOUNTER 2020-04-04 11:46 | Emergency (ER) | payer OTHER ==
[~2020-04-04] VITALS: Ht 157.5 cm; Wt 64.3 kg
[2020-04-04 11:46] VITALS: BP 133/83
[~2020-04-04 11:46] MED LIST changes: +OXYC1TAB23 PO; +PERCOCET PO
--- NOTE | 2020-04-04 15:17 | REP ---
Four views right foot: 04/04/2020. Indication: Right foot pain following injury. Comparison: None. Findings: There is no acute fracture, subluxation or dislocation. Postoperative sequelae of the first metatarsal are noted. No lytic or blastic lesions are present. Impression: No acute fracture. Electronically Signed by Manish Hernández DO 04/04/2020 03:08 P
== END 2020-04-04 13:27 | disposition home or self-care (01) ==
LOC: M ED 11:46
DX: S90.31XA Contusion of right foot, initial encounter (principal); W22.8XXA Striking against or struck by other objects, initial encounter; Y92.89 Other specified places as the place of occurrence of the external cause; Z88.0 Allergy status to penicillin; Z88.1 Allergy status to other antibiotic agents; Z88.2 Allergy status to sulfonamides; Z88.5 Allergy status to narcotic agent; Z88.8 Allergy status to other drugs, medicaments and biological substances

== ENCOUNTER → 2020-06-24 | Outpatient (REF) | payer OTHER ==
[2020-06-24 19:21] LABS: EOS # 0.1 10^3/uL (0.0-0.5); EOS % 1.8 % (0.0-3.0); HEMATOCRIT 42.1 % (36.0-47.0); LYMPH # 1.1 10^3/uL (1.5-5.0); LYMPH % 28.3 % (24.0-44.0); MEAN CORPUSCULAR HEMOGLOBIN 26.2 pg (27.0-33.0); MEAN CORPUSCULAR HGB CONC 30.9 g/dl (32.0-36.5); MEAN CORPUSCULAR VOLUME 84.7 fl (80.0-96.0); MONO # 0.2 10^3/uL (0.0-0.8); MONO % 5.8 % (0.0-5.0); NEUTROPHILS # 2.4 10^3/uL (1.5-8.5); NEUTROPHILS % 63.1 % (36.0-66.0); PLATELET COUNT, AUTOMATED 294 10^3/uL (150-450); RED BLOOD COUNT 4.97 10^6/uL (4.00-5.40); WHITE BLOOD COUNT 3.8 10^3/uL (4.0-10.0)
[2020-06-24 19:48] LABS: ALBUMIN 4.6 GM/DL (3.2-5.2); ALT/SGPT 13 U/L (12-78); BILIRUBIN,TOTAL 0.3 MG/DL (0.2-1.0); BLOOD UREA NITROGEN 10 MG/DL (7-18); CALCIUM LEVEL 9.3 MG/DL (8.5-10.1); CARBON DIOXIDE LEVEL 25 MEQ/L (21-32); CHLORIDE LEVEL 106 MEQ/L (98-107); CHOLESTEROL LEVEL 189 MG/DL (<200); CHOLESTEROL RISK RATIO 3.203 (<5); CREATININE FOR GFR 0.77 MG/DL (0.55-1.30); FREE T4 0.92 NG/DL (0.76-1.46); GLOMERULAR FILTRATION RATE > 60.0 (>60); GLUCOSE, FASTING 81 MG/DL (70-100); HDL CHOLESTEROL 59 MG/DL (>40); LDL CHOLESTEROL 123 MG/DL (<100); NON-HDL-C 130 MG/DL; POTASSIUM SERUM 4.3 MEQ/L (3.5-5.1); SODIUM LEVEL 139 MEQ/L (136-145); TOTAL PROTEIN 8.4 GM/DL (6.4-8.2); TRIGLYCERIDES LEVEL 36 MG/DL (<150)
[2020-06-24 19:51] LABS: TOTAL 25(OH) VITAMIN D 40.4 NG/ML (30.0-100.0)
== END ==
LOC: M LAB REF 18:12
PROVIDERS: ATTEND Nurse Practitioner Family
DX: Z13.29 Encounter for screening for other suspected endocrine disorder (principal); F41.8 Other specified anxiety disorders; R53.83 Other fatigue

== ENCOUNTER → 2021-04-05 | Outpatient (REF) | payer OTHER ==
[2021-04-05 18:17] LABS: APPEARANCE, URINE CLOUDY (CLEAR); BACTERIA, URINE AUTO 1+ (NEGATIVE); BILIRUBIN, URINE AUTO NEGATIVE (NEGATIVE); BLOOD, URINE BLOOD 2+ (NEGATIVE); COLOR, URINE YELLOW (YELLOW); GLUCOSE, URINE (UA) AUTO NEGATIVE (NEGATIVE); KETONE, URINE AUTO NEGATIVE (NEGATIVE); LEUKOCYTE ESTERASE, URINE AUTO 3+ (NEGATIVE); MUCUS, URINE SMALL (NEGATIVE); NITRITE, URINE AUTO NEGATIVE (NEGATIVE); PROTEIN, URINE AUTO 2+ mg/dL (NEGATIVE); RBC, URINE AUTO 122 /HPF (0-3); RENAL EPITHELIAL CELLS 1 /HPF; SPECIFIC GRAVITY URINE AUTO 1.012 (1.002-1.035); SQUAMOUS EPITHELIAL CELL UR AU 4 /HPF (0-6); TRANSITIONAL EPITHELIAL AUTO 1 /HPF; UROBILINOGEN, URINE AUTO 0.2 mg/dL (0.0-2.0); WBC, URINE AUTO TNTC /HPF (0-3)
== END ==
LOC: M LAB REF 16:32
PROVIDERS: ATTEND Physician Assistant Medical
DX: N39.0 Urinary tract infection, site not specified (principal)

== ENCOUNTER → 2021-10-03 | Outpatient (REF) | payer OTHER | LOC: M LAB REF 12:00 | PROVIDERS: ATTEND Physician Assistant Medical | DX: J02.9 Acute pharyngitis, unspecified (principal) ==

== ENCOUNTER → 2022-02-07 | Outpatient (REF) | payer OTHER ==
[2022-02-07 12:43] LABS: APPEARANCE, URINE CLOUDY (CLEAR); BACTERIA, URINE AUTO 1+ (NEGATIVE); BILIRUBIN, URINE AUTO NEGATIVE (NEGATIVE); BLOOD, URINE BLOOD 2+ (NEGATIVE); COLOR, URINE YELLOW (YELLOW); GLUCOSE, URINE (UA) AUTO NEGATIVE (NEGATIVE); KETONE, URINE AUTO NEGATIVE (NEGATIVE); LEUKOCYTE ESTERASE, URINE AUTO 2+ (NEGATIVE); MUCUS, URINE SMALL (NEGATIVE); NITRITE, URINE AUTO POSITIVE (NEGATIVE); PROTEIN, URINE AUTO 1+ mg/dL (NEGATIVE); RBC, URINE AUTO 49 /HPF (0-3); SPECIFIC GRAVITY URINE AUTO 1.014 (1.002-1.035); SQUAMOUS EPITHELIAL CELL UR AU 14 /HPF (0-6); UROBILINOGEN, URINE AUTO 0.2 mg/dL (0.0-2.0); WBC, URINE AUTO TNTC /HPF (0-3)
== END ==
LOC: M LAB REF 11:53
PROVIDERS: ATTEND Physician Assistant Medical
DX: N39.0 Urinary tract infection, site not specified (principal)

== ENCOUNTER → 2022-07-12 | Outpatient (REF) | payer OTHER | LOC: M WUC 12:21 | PROVIDERS: ATTEND Physician Assistant Medical | DX: J02.9 Acute pharyngitis, unspecified (principal) ==

== ENCOUNTER → 2022-08-04 | Outpatient (REF) | payer OTHER | LOC: M LAB REF 08:58 | PROVIDERS: ATTEND Physician Assistant | DX: N39.0 Urinary tract infection, site not specified (principal) ==

== ENCOUNTER → 2022-09-26 | Outpatient (REF) | LOC: M EMP 10:06 | PROVIDERS: ATTEND Family Medicine | DX: Z11.52 Encounter for screening for COVID-19 (principal) ==

== ENCOUNTER → 2022-10-04 | Outpatient (REF) ==
[2022-10-04 13:08] LABS: RSV AMPLIFICATION NEGATIVE (NEGATIVE)
== END ==
LOC: M EMP 11:22
PROVIDERS: ATTEND Family Medicine
DX: Z20.818 Contact with and (suspected) exposure to other bacterial communicable diseases (principal)

== ENCOUNTER → 2022-10-11 | Outpatient (REF) | LOC: M EMP 13:51 | PROVIDERS: ATTEND Family Medicine ==

== ENCOUNTER → 2022-10-12 | Outpatient (REF) | LOC: M EMP 09:20 | PROVIDERS: ATTEND Family Medicine | DX: Z11.52 Encounter for screening for COVID-19 (principal) ==

== ENCOUNTER → 2023-06-01 | Outpatient (REF) | payer OTHER, MEDICAID ==
[2023-06-01 16:43] LABS: APPEARANCE, URINE HAZY (CLEAR); BACTERIA, URINE AUTO 1+ (NEGATIVE); BILIRUBIN, URINE AUTO NEGATIVE (NEGATIVE); BLOOD, URINE BLOOD NEGATIVE (NEGATIVE); CALCIUM OXALATE CRYSTALS MODERATE; COLOR, URINE AMBER (YELLOW); GLUCOSE, URINE (UA) AUTO NEGATIVE (NEGATIVE); KETONE, URINE AUTO TRACE mg/dL (NEGATIVE); LEUKOCYTE ESTERASE, URINE AUTO 2+ (NEGATIVE); MUCUS, URINE SMALL (NEGATIVE); NITRITE, URINE AUTO NEGATIVE (NEGATIVE); PROTEIN, URINE AUTO 1+ mg/dL (NEGATIVE); RBC, URINE AUTO 2 /HPF (0-3); SQUAMOUS EPITHELIAL CELL UR AU 14 /HPF (0-6); WBC, URINE AUTO 8 /HPF (0-3)
== END ==
LOC: M LAB REF 16:25
PROVIDERS: ATTEND Physician Assistant
DX: N39.0 Urinary tract infection, site not specified (principal)

== ENCOUNTER → 2023-12-04 | Outpatient (REF) | payer OTHER, MEDICAID ==
[2023-12-04 13:29] LABS: BASO % 0.6 % (0.0-1.0); EOS # 0.3 10^3/uL (0.0-0.5); EOS % 6.8 % (0.0-3.0); HEMATOCRIT 39.7 % (36.0-47.0); HEMOGLOBIN 12.9 g/dl (12.0-15.5); LYMPH # 1.4 10^3/uL (1.5-5.0); LYMPH % 29.6 % (24.0-44.0); MEAN CORPUSCULAR HEMOGLOBIN 28.4 pg (27.0-33.0); MEAN CORPUSCULAR HGB CONC 32.5 g/dl (32.0-36.5); MEAN CORPUSCULAR VOLUME 87.4 fl (80.0-96.0); MONO # 0.3 10^3/uL (0.0-0.8); MONO % 6.8 % (2.0-8.0); NEUTROPHILS # 2.7 10^3/uL (1.5-8.5); PLATELET COUNT, AUTOMATED 238 10^3/uL (150-450); RED BLOOD COUNT 4.54 10^6/uL (4.00-5.40); WHITE BLOOD COUNT 4.7 10^3/uL (4.0-10.0)
[2023-12-04 14:14] LABS: ALBUMIN 4.1 G/DL (3.2-5.2); ALKALINE PHOSPHATASE 90 U/L (46-116); ALT/SGPT < 9 U/L (7.0-40); AST/SGOT 8 U/L (<34); BILIRUBIN,TOTAL 0.4 MG/DL (0.3-1.2); BLOOD UREA NITROGEN 9 MG/DL (9-23); CALCIUM LEVEL 8.9 MG/DL (8.5-10.1); CARBON DIOXIDE LEVEL 26 MMOL/L (20-31); CHLORIDE LEVEL 106 MMOL/L (98-107); CHOLESTEROL LEVEL 167 MG/DL (<200); CHOLESTEROL RISK RATIO 3.01 (<5); CREATININE FOR GFR 0.65 MG/DL (0.55-1.30); GLOMERULAR FILTRATION RATE > 60.0 (>60); GLUCOSE, FASTING 83 MG/DL (60-100); HDL CHOLESTEROL 55.4 MG/DL (>40); LDL CHOLESTEROL 101.2 MG/DL (<100); NON-HDL-C 111.6 MG/DL; POTASSIUM SERUM 4.3 MMOL/L (3.5-5.1); SODIUM LEVEL 138 MMOL/L (136-145); TOTAL PROTEIN 7.1 G/DL (5.7-8.2); TRIGLYCERIDES LEVEL 52 MG/DL (<150)
[2023-12-04 14:16] LABS: THYROID STIMULATING HORMONE 4.054 uIU/ML (0.55-4.78); TOTAL 25(OH) VITAMIN D 21.4 NG/ML (20.0-100.0)
[2023-12-04 14:30] LABS: HEMOGLOBIN A1c 4.7 % (4.0-6.0)
== END ==
LOC: M LAB REF 12:15
PROVIDERS: ATTEND Nurse Practitioner Family
DX: Z13.228 Encounter for screening for other metabolic disorders (principal)

== ENCOUNTER → 2024-02-10 | Outpatient (REF) | payer OTHER | LOC: M LAB REF 18:47 | PROVIDERS: ATTEND Physician Assistant Medical | DX: R07.0 Pain in throat (principal) ==

== ENCOUNTER → 2024-03-13 | Outpatient (CLI) | payer OTHER | LOC: M WHC 07:45 | PROVIDERS: ATTEND Nurse Practitioner Family | DX: N63.42 Unspecified lump in left breast, subareolar (principal); R92.323 Mammographic fibroglandular density, bilateral breasts ==

== ENCOUNTER → 2024-06-03 | Outpatient (CLI) | payer OTHER | LOC: M WUC 08:19 | PROVIDERS: ATTEND Student in an Organized Health Care Education/Training Program | DX: M25.571 Pain in right ankle and joints of right foot (principal) ==

== ENCOUNTER → 2024-10-06 | Outpatient (CLI) | payer OTHER | LOC: M RAD 09:35 | PROVIDERS: ATTEND Student in an Organized Health Care Education/Training Program | DX: M54.2 Cervicalgia (principal) ==